=== PATIENT | female | born 1960 | race Hispanic/Latino ===

== ENCOUNTER 2017-09-16 06:26 | Day surgery (SDC) | payer OTHER ==
[2017-09-06 10:37] VITALS: BMI 28.5
[2017-09-16] MEDS ORDERED: Lidocaine 2% Inj (20ml) ONE (06:50)
[2017-09-16] MEDS ORDERED: DiphenhydrAMINE 50 mg/ml Inj ONE (06:51)
[2017-09-16] MEDS ORDERED: Midazolam 2 MG/2 ML VIAL ONE ×2 (06:51→07:55)
[2017-09-16] MEDS ORDERED: Heparin 0 ML IV ONE (06:51)
[2017-09-16] MEDS ORDERED: Phenylephrine 10 mg/ml Inj ONE (06:51)
[2017-09-16] MEDS ORDERED: Nitroglycerin 50mg in D5W 0 MG/0 ML BOTTLE IV ONE (06:52)
[2017-09-16] MEDS ORDERED: Iodixanol 320 MG/ML 100 ML BOTTLE IV ONE (06:52)
[2017-09-16] MEDS ORDERED: Iodixanol 320 MG/ML 200 ML BOTTLE IV ONE (06:52)
[2017-09-16] MEDS ORDERED: Iohexol 350mgl/ml 50 ML ONE (06:52)
[2017-09-16] MEDS ORDERED: Famotidine 20mg/50ml 20 MG/50 ML BAG IVPB ONE (06:52)
[2017-09-16 07:14] LABS: BASO # 0.03 K/mm3 (0.0-2.0); BASO % 0.5 % (0.0-3.0); EOS % 0.7 % (1.5-5.0); GRAN # 3.09 (1.4-6.5); HEMATOCRIT 37.9 % (36.0-48.0); LYMPH % 35.6 % (22.0-35.0); MEAN CELL VOLUME 93.8 fl (80.0-105.0); MEAN CORPUSCULAR HEMOGLOBIN 32.2 pg (25.0-35.0); MEAN CORPUSCULAR HGB CONC 34.3 g/dl (31.0-37.0); MEAN PLATELET VOLUME 9.3 fl (7.0-11.0); MONO # 0.5 (0.1-0.6); MONO % 9.2 % (1.0-6.0); RED CELL DISTRIBUTION WIDTH 12.3 % (11.5-14.5); WHITE BLOOD COUNT 5.7 10^3/ul (4.5-11.0)
[2017-09-16 07:16] VITALS: RESP 18
[2017-09-16 07:24] LABS: BLOOD UREA NITROGEN 13 mg/dL (7-21); CALCIUM 9.9 mg/dL (8.4-10.5); CARBON DIOXIDE 33 mmol/L (21-33); CHLORIDE 103 mmol/L (95-110); GFR AFRICAN-AMERICAN > 60; GLUCOSE,RANDOM 93 mg/dL (70-110); POTASSIUM 3.7 mmol/L (3.6-5.0); SODIUM 143 mmol/L (132-148)
[2017-09-16 07:27] LABS: INR 1.04 (0.93-1.08); PARTIAL THROMBOPLASTIN TIME 32.4 Seconds (25.1-36.5)
[2017-09-16] MEDS ORDERED: Sodium Chloride 0.9% 1,000 ML IV SCH (08:30)
--- NOTE | 2017-09-16 09:18 | CARDCATH ---
PROCEDURE DATE: 09/16/2017 HISTORY: The patient is a 56-year-old woman, who presents with chest pain. A stress test was abnormal. The patient's past medical history is notable for intermittent dyspnea as well as a history of mitral valve prolapse in the past. Because of this, cardiac catheterization was recommended. Her stress test was abnormal and a cardiac catheterization was recommended. Because of her multiple allergies, the patient was pretreated with steroids as well as antihistamines. PROCEDURE: Left heart catheterization with coronary arteriography and left ventriculogram. The right femoral artery was cannulated with 6-[place] sheath. There were no complications. Findings on catheterization revealed a left ventricle that contracted normally. Estimated ejection fraction is 60%. Her coronary anatomy revealed a right dominant circulation. The RCA was free of significant disease and was found to be within normal limits. The left main artery was unremarkable. The LAD and diagonal vessels were free of significant disease. The circumflex artery and obtuse marginal branches were free of significant disease. Angio-Seal was used to close the femoral artery site. During the procedure, the patient received moderate sedation which I performed, which included the presence of an independent trained observer that assisted in monitoring the patient's level of consciousness and physiologic status. After administration of Versed as well as fentanyl, my intraservice time was 15 minutes. Angio-Seal was used to close the femoral artery site. The patient tolerated the procedure well. In summary, the procedure revealed unremarkable coronary arteries with normal LV function. Given these findings, the patient's treatment should be continued cardiac risk reduction program. Her symptoms are not cardiac related. Aron Fox MD
[2017-09-16 11:24] VITALS: O2SAT 97
[2017-09-16 13:51] VITALS: TEMP 98.9
[2017-09-16 13:52] VITALS: BP 110/68; PULSE 52
--- NOTE | 2017-09-16 20:28 | CARD ---
APPROVED REPORT EKG Measurement Heart [id number] <Conclusion> Sinus bradycardia Otherwise normal ECG
== END 2017-09-16 16:00 | disposition home or self-care (01) ==
LOC: CATH 06:26
PROVIDERS: ATTEND Internal Medicine Cardiovascular Disease
DX: R07.9 Chest pain, unspecified (principal); R94.39 Abnormal result of other cardiovascular function study; I34.1 Nonrheumatic mitral (valve) prolapse; R06.00 Dyspnea, unspecified
CPT/HCPCS: 36415; 80048; 85025; 85610; 85730; 86850; 86900; 93005; 93458; 99152; C1760; C1769; C2629; J1200; J1644; J2250; J2930; J3010; J7040 ×2

== ENCOUNTER 2017-12-23 01:40 | Emergency (ER) | payer OTHER ==
[2017-12-23 01:56] VITALS: BMI 29.2
[2017-12-23] MEDS ORDERED: Sodium Chloride 0.9% 1,000 ML IV STA (02:01)
[2017-12-23] MEDS ORDERED: Iohexol 240 (50 ml) ONE (02:23)
[2017-12-23 02:24] VITALS: RESP 18; TEMP 97.7
--- NOTE | 2017-12-23 02:25 | ED PDOC ---
Arrival/HPI - General Chief Complaint: Abdominal Pain Time Seen by Provider: 12/23/17 01:55 Historian: Patient - History of Present Illness Narrative History of Present Illness (Text): 12/23/17 02:25 A 57 year old female, whose past medical history includes diverticulitis, presents to the emergency department complaining of abdominal pain for the past 4 days. Patient describes pain as pressure and cramping, states she feels bloated. Patient reports pain radiates to her back. Patient denies any other complaints at this time. Time/Duration: < week Symptom Onset: Sudden Symptom Course: Unchanged Activities at Onset: Rest Context: Home Past Medical History - Provider Review Nursing Documentation Reviewed: Yes - Infectious Disease Hx of Infectious Diseases: None - Tetanus Immunization Tetanus Immunization: Unknown - Reproductive Menopause: Yes - Cardiac Hx Cardiac Disorders: No Hx Pacemaker: No - Pulmonary Hx Asthma: Yes (related to allergies) - Neurological Hx Neurological Disorder: No Other/Comment: johana-barre virus - HEENT Hx HEENT Disorder: No Other/Comment: taya amezcua - Renal Hx Renal Disorder: No - Endocrine/Metabolic Hx Hypothyroidism: Yes - Hematological/Oncological Hx Blood Transfusions: No - Integumentary Hx Dermatological Disorder: No - Musculoskeletal/Rheumatological Hx Musculoskeletal Disorders: No Hx Herniated Disk: Yes - Gastrointestinal Hx Gastrointestinal Disorders: No Hx Diverticulitis: Yes - Genitourinary/Gynecological Hx Genitourinary Disorders: No - Psychiatric Hx Emotional Abuse: No Hx Physical Abuse: No Hx Substance Use: No - Surgical History Hx Tonsillectomy: Yes Other/Comment: neck plates&screws/lymph biopsy - Anesthesia Hx Anesthesia Reactions: Yes (HIVES AFTER A COLONOSCOPY) Hx Malignant Hyperthermia: No - Suicidal Assessment Feels Threatened In Home Enviroment: No Family/Social History - Physician Review Nursing Documentation Reviewed: Yes Family/Social History: No Known Family HX Smoking Status: Former Smoker Hx Alcohol Use: No Hx Substance Use: No Hx Substance Use Treatment: No Allergies/Home Meds Allergies/Adverse Reactions: Allergies aspirin Allergy (Verified 12/23/17 02:43) hives cefuroxime axetil [From Ceftin] Allergy (Verified 12/23/17 02:43) hives ciprofloxacin [From Cipro] Allergy (Verified 12/23/17 02:43) blisters blisters ciprofloxacin HCl [From Cipro] Allergy (Verified 12/23/17 02:43) blisters blisters coconut Allergy (Verified 12/23/17 02:52) RASH doxycycline Allergy (Verified 12/23/17 02:43) unknown gluten Allergy (Verified 12/23/17 02:52) ITCHING iodine Allergy (Verified 12/23/17 02:43) SWELLING lactase [From Dairy Aid] Allergy (Verified 12/23/17 02:43) abd upset latex Allergy (Verified 12/23/17 02:43) RASH loratadine [From Claritin] Allergy (Verified 12/23/17 02:52) SWELLING mercaptopurine Allergy (Verified 12/23/17 02:43) unknown montelukast Allergy (Verified 12/23/17 02:43) abd upset oxycodone Allergy (Verified 12/23/17 02:43) facial swelling pepper Allergy (Verified 12/23/17 02:52) RASH shellfish derived Allergy (Verified 12/23/17 02:43) SWELLING soy Allergy (Verified 12/23/17 02:43) lips swell wheat Allergy (Verified 12/23/17 02:52) ITCHING dairy Allergy (Mild, Uncoded 12/23/17 02:43) abd upset apples Allergy (Uncoded 12/23/17 02:52) SWELLING bioxin Allergy (Uncoded 12/23/17 02:43) lips swell eggs Allergy (Uncoded 12/23/17 02:43) lips swell nuts Allergy (Uncoded 12/23/17 02:43) lips swell Home Medications: Home Meds Medication Instructions Recorded Confirmed Levothyroxine [Synthroid] 10 mg PO DAILY 11/15/16 12/23/17 Meclizine [Antivert] 25 mg PO Q6 PRN 09/06/17 12/23/17 Ascorbic Acid [Vitamin C] 250 mg PO DAILY 12/23/17 12/23/17 Cholecalciferol [Vitamin D] 1,000 iu PO DAILY 12/23/17 12/23/17 Cyanocobalamin (Vitamin B-12) 1,000 mcg PO QOTHERDAY 12/23/17 12/23/17 [Vitamin B-12] Thiamine [Vitamin B-1] 100 mg PO TITR 12/23/17 12/23/17 Review of Systems - Physician Review All systems were reviewed & negative as marked: Yes - Review of Systems Constitutional: absent: Fevers Gastrointestinal: Abdominal Pain Musculoskeletal: Back Pain Physical Exam Vital Signs Reviewed: Yes Vital Signs Temp Pulse Resp BP Pulse Ox 12/23/17 02:16 97.7 F 59 L 18 112/68 98 Temperature: Afebrile Blood Pressure: Normal Pulse: Regular Respiratory Rate: Normal Appearance: Positive for: Well-Appearing, Non-Toxic, Comfortable Pain Distress: None Mental Status: Positive for: Alert and Oriented X 3 - Systems Exam Head: Present: Atraumatic, Normocephalic Pupils: Present: PERRL Extroacular Muscles: Present: EOMI Conjunctiva: Present: Normal Mouth: Present: Moist Mucous Membranes Neck: Present: Normal Range of Motion Respiratory/Chest: Present: Clear to Auscultation, Good Air Exchange. No: Respiratory Distress, Accessory Muscle Use Cardiovascular: Present: Regular Rate and Rhythm, Normal S1, S2. No: Murmurs Abdomen: Present: Tenderness (LLQ), Normal Bowel Sounds. No: Distention, Peritoneal Signs Back: Present: Normal Inspection Upper Extremity: Present: Normal Inspection. No: Cyanosis, Edema Lower Extremity: Present: Normal Inspection. No: Edema Neurological: Present: GCS=15, CN II-XII Intact, Speech Normal Skin: Present: Warm, Dry, Normal Color. No: Rashes Psychiatric: Present: Alert, Oriented x 3, Normal Insight, Normal Concentration Medical Decision Making ED Course and Treatment: 12/23/17 02:23 Impression: A 57 year old female with abdominal pain, radiating to back. Plan: -- CT abd/pelvis -- labs -- Urinalysis -- IV fluids, Toradol, Zofran -- Reassess and disposition Progress Notes: 12/23/17 05:24 CT Abdomen and Pelvis With Intravenous Contrast IMPRESSION: There is a large amount of stool throughout the colon. No diverticulitis. Dictated and Authenticated by: Thomas Rose MD 12/23/2017 5:07 AM Eastern Time ([place] & [place]) - Lab Interpretations Lab Results: 12/23/17 02:35 12/23/17 02:35 Lab Results 12/23/17 02:35: Sodium 142, Potassium 3.8, Chloride 102, Carbon Dioxide 29, Anion Gap 14, BUN 11, Creatinine 0.7, Est GFR ( Amer) > 60, Est GFR (Non- Af Amer) > 60, Random Glucose 84, Calcium 9.7, Total Bilirubin 0.6, AST 27, ALT 30, Alkaline Phosphatase 60, Total Protein 7.3, Albumin 4.4, Globulin 2.9, Albumin/Globulin Ratio 1.5, Lipase 78 12/23/17 02:35: Urine Color Yellow, Urine Appearance Clear, Urine pH 6.0, Ur Specific [place] <= 1.005, Urine Protein Negative, Urine Glucose (UA) Negative, Urine Ketones Negative, Urine Blood Negative, Urine Nitrate Negative, Urine Bilirubin Negative, Urine Urobilinogen 0.2, Ur Leukocyte Esterase Negative 12/23/17 02:35: PT 12.1, INR 1.05 12/23/17 02:35: WBC 5.3, RBC 3.85, Hgb 12.3, Hct 36.9, MCV 95.8, MCH 31.9, MCHC 33.3, RDW 12.1, Plt Count 220, MPV 9.4, Gran % 61.1, Lymph % (Auto) 26.5, [place] % (Auto) 10.1 H, Eos % (Auto) 1.9, Baso % (Auto) 0.4, Gran # 3.26, Lymph # (Auto ) 1.4, [place] # (Auto) 0.5, Eos # (Auto) 0.1, Baso # (Auto) 0.02 I have reviewed the lab results: Yes - RAD Interpretation Radiology Orders: 12/23/17 02:16 ABD & PELVIS PO CONTRAST ONLY [CT] Stat - Medication Orders Current Medication Orders: Discontinued Medications Sodium Chloride (Sodium Chloride 0.9%) 1,000 mls @ 999 mls/hr IV .Q1H1M STA Stop: 12/23/17 03:01 Last Admin: 12/23/17 02:42 Dose: 999 mls/hr eMAR Start Stop Document 12/23/17 02:42 JOL (Rec: 12/23/17 02:42 JOL [id number]) Intravenous Solution Start Date 12/23/17 Start Time 02:42 End Date 12/23/17 End time 02:43 Total Infusion Time 1 Ketorolac Tromethamine (Toradol) 30 mg IVP STAT STA Stop: 12/23/17 02:02 Last Admin: 12/23/17 02:42 Dose: Not Given Non-Admin Reason: Patient Refused Ondansetron HCl (Zofran Inj) 4 mg IVP STAT STA Stop: 12/23/17 02:02 Last Admin: 12/23/17 02:42 Dose: Not Given Non-Admin Reason: Patient Refused - PA / CREW ATTENDANT / Resident Statement MD/DO has reviewed & agrees with the documentation as recorded. - Scribe Statement The provider has reviewed the documentation as recorded by the Nona Diez Provider Scribe Attestation: All medical record entries made by the Nona were at my direction and personally dictated by me. I have reviewed the chart and agree that the record accurately reflects my personal performance of the history, physical exam, medical decision making, and the department course for this patient. I have also personally directed, reviewed, and agree with the discharge instructions and disposition. Disposition/Present on Arrival - Present on Arrival Any Indicators Present on Arrival: No History of DVT/PE: No History of Uncontrolled Diabetes: No Urinary Catheter: No History of Decub. Ulcer: No History Surgical Site Infection Following: None - Disposition Have Diagnosis and Disposition been Completed?: Yes Diagnosis: Abdominal pain, Constipation Disposition: HOME/ ROUTINE Disposition Time: 05:37 Patient Plan: Discharge Condition: GOOD Discharge Instructions (ExitCare): Constipation (ED) Additional Instructions: [place] - All of your testing was normal, however the CT Scan did show constipation. Take the magnesium citrate when you get home and stay close to the bathroom. Start the Miralax tomorrow. Return to us if worse or new symptoms. Follow up with your doctor later this week or next. Best- Dr. Prashant Sargent Referrals: PCP,NO [Primary Care Provider] - Follow up with primary Forms: [employer] ([place])
[2017-12-23 02:47] LABS: BASO # 0.02 K/mm3 (0.0-2.0); BASO % 0.4 % (0.0-3.0); EOS # 0.1 (0.0-0.7); EOS % 1.9 % (1.5-5.0); GRAN # 3.26 (1.4-6.5); GRAN % 61.1 % (50.0-68.0); HEMOGLOBIN 12.3 g/dL (12.0-16.0); LYMPH # 1.4 (1.2-3.4); LYMPH % 26.5 % (22.0-35.0); MEAN CELL VOLUME 95.8 fl (80.0-105.0); MEAN CORPUSCULAR HEMOGLOBIN 31.9 pg (25.0-35.0); MEAN CORPUSCULAR HGB CONC 33.3 g/dl (31.0-37.0); MEAN PLATELET VOLUME 9.4 fl (7.0-11.0); MONO # 0.5 (0.1-0.6); MONO % 10.1 % (1.0-6.0); RBC 3.85 10^6/uL (3.5-6.1); RED CELL DISTRIBUTION WIDTH 12.1 % (11.5-14.5); WHITE BLOOD COUNT 5.3 10^3/ul (4.5-11.0)
[2017-12-23 02:48] LABS: URINE APPEARANCE CLEAR (CLEAR); URINE BILIRUBIN NEGATIVE (NEGATIVE); URINE BLOOD NEGATIVE (NEGATIVE); URINE COLOR YELLOW (YELLOW); URINE GLUCOSE (UA) NEGATIVE (NEGATIVE); URINE LEUKOCYTE ESTERASE NEGATIVE Leu/uL (NEGATIVE); URINE NITRATE NEGATIVE (NEGATIVE); URINE PROTEIN NEGATIVE mg/dL (<30 mg/dL); URINE UROBILINOGEN 0.2 E.U./dL (<1 E.U./dL)
[2017-12-23 02:58] LABS: ALB/GLOB RATIO 1.5 (1.1-1.8); ALBUMIN 4.4 g/dL (3.0-4.8); ALT/SGPT 30 U/L (7-56); AST/SGOT 27 U/L (14-36); BLOOD UREA NITROGEN 11 mg/dL (7-21); CALCIUM 9.7 mg/dL (8.4-10.5); GFR AFRICAN-AMERICAN > 60; GFR NON-AFRICAN AMERICAN > 60; LIPASE 78 U/L (23-300)
[2017-12-23 03:28] LABS: INR 1.05 (0.93-1.08); PROTHROMBIN TIME 12.1 SECONDS (9.4-12.5)
[2017-12-23] MEDS ORDERED: Magnesium Citrate Oral SOL (300 ml) PO ONE (05:36)
[2017-12-23 06:38] VITALS: BP 117/68; PULSE 69; O2SAT 100
--- NOTE | 2017-12-23 08:28 | CT ---
PROCEDURE: CT Abdomen and Pelvis without intravenous contrast HISTORY: ?Diverticulitis?? COMPARISON: None. TECHNIQUE: Without contrast.. Contrast Dose: Radiation dose: Total exam DLP = 642 mGy-cm. This CT exam was performed using one or more of the following dose reduction techniques: Automated exposure control, adjustment of the mA and/or kV according to patient size, and/or use of iterative reconstruction technique. FINDINGS: LOWER THORAX: Unremarkable. LIVER: Unremarkable. No gross lesion or ductal dilatation. GALLBLADDER AND BILE DUCTS: Unremarkable. PANCREAS: Unremarkable. No gross lesion or ductal dilatation. SPLEEN: Unremarkable. ADRENALS: Unremarkable. No mass. KIDNEYS AND URETERS: Unremarkable. No hydronephrosis. No solid mass. VASCULATURE: Unremarkable. No aortic aneurysm. BOWEL: Unremarkable. No obstruction. No gross mural thickening. There is difq-sq-ivnjmans constipation. APPENDIX: Unremarkable. Normal appendix. PERITONEUM: Unremarkable. No free fluid. No free air. LYMPH NODES: Unremarkable. No enlarged lymph nodes. BLADDER: Unremarkable. REPRODUCTIVE: Unremarkable. BONES: No acute fracture. OTHER FINDINGS: The report concurs with the preliminary [facility] report IMPRESSION: No acute intra-abdominal findings
== END 2017-12-23 06:10 | disposition home or self-care (01) ==
LOC: ED 01:40
DX: R10.9 Unspecified abdominal pain (principal); K59.00 Constipation, unspecified
CPT/HCPCS: 74176; 80053; 81003; 83690; 85025; 85610; 87086; 99285; J7040; Q9966